=== PATIENT | female | born 1960 | race African-American/Black ===

== ENCOUNTER 2020-08-01 10:39 | Emergency (ER) | payer MEDICAID ==
[~2020-08-01] VITALS: Ht 165.1 cm; Wt 61.0 kg
[2020-08-01 10:42] VITALS: BP 140/66
[2020-08-01] MEDS ORDERED: KETOROLAC 60MG/2ML VIAL IM ONE (11:15)
[2020-08-01] MEDS ORDERED: ONDANSETRON HCL 4MG/2ML INJ IV STA (11:47)
[2020-08-01] MEDS ORDERED: MORPHINE SULFATE 4 MG/ML CPJ (NOT FOR IM USE) IV STA (11:47)
[2020-08-01] MEDS ORDERED: SODIUM CHLORIDE 0.9% 1,000 ML IV ONE (12:00)
[2020-08-01 13:21] LABS: BASOPHILS % 0.3 % (0.0-2.0); HEMATOCRIT. 45.6 % (36.0-48.0); HEMOGLOBIN. 15.2 g/dL (12.0-16.0); LYMPHOCYTES % 14.7 % (20.0-50.0); MEAN CORPUSCULAR HEMOGLOBIN 28.5 pg (28.0-32.0); MEAN CORPUSCULAR VOLUME 85.7 fL (81.0-99.0); MEAN PLATELET VOLUME 8.9 fl (7.4-10.4); PLATELET 227 x1000/uL (130-400); RED BLOOD CELL COUNT 5.33 mill/uL (4.2-5.4)
[2020-08-01 13:26] LABS: PROTHROMBIN TIME 10.2 sec (9.6-11.0)
[2020-08-01 13:28] LABS: CHLORIDE 106 mEq/L (98-107)
[2020-08-01 13:36] LABS: ETHANOL BLOOD < 10 mg/dL
[2020-08-01] MEDS ORDERED: IOHEXOL-300 100 ML BOTTLE ONE (14:51)
[2020-08-01 16:44] LABS: CLARITY URINE CLEAR (CLEAR); COLOR URINE YELLOW (YELLOW); KETONES URINE TRACE (NEGATIVE); LEUKOCYTE ESTERASE URINE TRACE (NEGATIVE); NITRITE URINE NEGATIVE (NEGATIVE); OCCULT BLOOD URINE TRACE (NEGATIVE); PROTEIN URINE NEGATIVE (NEGATIVE); SPECIFIC GRAVITY URINE 1.052 (1.005-1.030); UROBILINOGEN URINE 0.2 E.U./dL (0.2-1.0)
[2020-08-01 17:09] LABS: *AMPHETAMINES SCREEN URINE NEGATIVE (NEGATIVE); *BARBITURATES SCREEN URINE NEGATIVE (NEGATIVE); *BENZODIAZEPINES SCREEN URINE NEGATIVE (NEGATIVE); *COCAINE SCREEN URINE PRESUMTIVE POSITIVE (NEGATIVE); METHADONE URINE SCREEN NEGATIVE (NEGATIVE); OPIATES URINE SCREEN PRESUMTIVE POSITIVE (NEGATIVE)
[2020-08-01 17:10] LABS: CANNABINOID URINE SCREEN NEGATIVE (NEGATIVE); PHENCYCLIDINE URINE SCREEN NEGATIVE (NEGATIVE)
== END 2020-08-01 17:15 | disposition home or self-care (01) ==
LOC: ER 10:52
DX: R07.81 Pleurodynia (principal); R05 Cough; K76.89 Other specified diseases of liver
CPT/HCPCS: 36415; 71101; 71260; 74177; 80053; 80305; 80320; 81003; 83690; 85025; 85610; 87077; 87086; 87186; 93005; 96361; 96374; 96375; 99285; J2270; J2405; J7030; Q9967; Z7610; G0480

== ENCOUNTER 2022-06-10 00:55 | Inpatient (IN) | payer MEDICAID ==
[2022-06-09 20:00] VITALS: BP 149/81
[~2022-06-10] VITALS: Ht 154.9 cm; Wt 57.6 kg
[2022-06-10] MEDS ORDERED: ACETAMINOPHEN 500MG TABLET PO ONE (02:15)
[2022-06-10] MEDS ORDERED: IBUPROFEN 600MG TABLET PO ONE (04:15)
[2022-06-10 05:26] LABS: CHLORIDE 103 mEq/L (98-107)
[2022-06-10 05:27] LABS: BASOPHILS % 0.5 % (0.0-2.0); HEMATOCRIT. 43.3 % (36.0-48.0); HEMOGLOBIN. 14.4 g/dL (12.0-16.0); MEAN CORPUSCULAR HEMOGLOBIN 27.7 pg (28.0-32.0); MEAN CORPUSCULAR VOLUME 83.3 fL (81.0-99.0); MEAN PLATELET VOLUME 8.5 fl (7.4-10.4); MONOCYTES % 9.5 % (2.0-8.0); PLATELET 222 x1000/uL (130-400); RED BLOOD CELL COUNT 5.19 mill/uL (4.2-5.4)
[2022-06-10 12:00] VITALS: BP 155/91
[2022-06-10] MEDS ORDERED: ONDANSETRON HCL 4MG/2ML INJ IV PRN (12:30)
[2022-06-10] MEDS ORDERED: NALOXONE HCL 0.4MG/ML VIAL IV PRN (12:45)
[2022-06-10 16:00] VITALS: BP 131/83
[2022-06-10] MEDS: AMLODIPINE 10MG TABLET PO SCH (17:20)
[2022-06-10 18:27] LABS: PROTHROMBIN TIME 10.7 sec (9.6-11.0)
[2022-06-10 20:00] VITALS: BP 133/93
[2022-06-10 20:02] VITALS: BP 166/79
[2022-06-11 00:38] VITALS: BP 136/79
[2022-06-11 05:17] VITALS: BP 134/69
[2022-06-11 08:00] VITALS: BP 120/68
[2022-06-11] MEDS ORDERED: LIDOCAINE HCL 1% 30ML VIAL (10MG/ML) ONE (08:56)
[2022-06-11] MEDS ORDERED: SODIUM BICARBONATE 4% (2.4MEQ) 5ML VIAL IV ONE (08:57)
[2022-06-11] MEDS ORDERED: LIDOCAINE HCL/PF 1% 10 MG/ML 5ML VIAL ONE (08:57)
[2022-06-11 09:43] LABS: CLARITY URINE CLOUDY (CLEAR); COLOR URINE YELLOW (YELLOW); KETONES URINE NEGATIVE (NEGATIVE); LEUKOCYTE ESTERASE URINE 2+ (NEGATIVE); NITRITE URINE POSITIVE (NEGATIVE); OCCULT BLOOD URINE 1+ (NEGATIVE); PH URINE 6.5 (4.5-8.0); PROTEIN URINE NEGATIVE (NEGATIVE); SPECIFIC GRAVITY URINE 1.019 (1.005-1.030)
[2022-06-11 09:49] LABS: *AMPHETAMINES SCREEN URINE NEGATIVE (NEGATIVE); *BARBITURATES SCREEN URINE NEGATIVE (NEGATIVE); *BENZODIAZEPINES SCREEN URINE NEGATIVE (NEGATIVE); *COCAINE SCREEN URINE PRESUMTIVE POSITIVE (NEGATIVE); CANNABINOID URINE SCREEN NEGATIVE (NEGATIVE); METHADONE URINE SCREEN NEGATIVE (NEGATIVE); OPIATES URINE SCREEN NEGATIVE (NEGATIVE); PHENCYCLIDINE URINE SCREEN NEGATIVE (NEGATIVE)
[2022-06-11] MEDS: AMLODIPINE 10MG TABLET PO SCH (11:25)
[2022-06-11] MEDS: HYDROCODONE/ACETAMINOPHEN 10/325MG TABLET PO PRN ×2 (11:25→18:26)
[2022-06-11 12:00] VITALS: BP 111/64
[2022-06-11] MEDS ORDERED: CEFTRIAXONE 1 G PREMIX 50 ML IV SCH (13:00)
[2022-06-11 16:00] VITALS: BP 110/65
[2022-06-11 17:30] LABS: BASOPHILS % 0.2 % (0.0-2.0); EOSINOPHILS % 0.1 % (0.0-5.0); HEMATOCRIT. 45.6 % (36.0-48.0); LYMPHOCYTES % 20.3 % (20.0-50.0); MEAN CORPUSCULAR VOLUME 84.8 fL (81.0-99.0); MEAN PLATELET VOLUME 8.5 fl (7.4-10.4); MONOCYTES % 10.1 % (2.0-8.0); NEUTROPHILS % 69.3 % (40.0-76.0); PLATELET 254 x1000/uL (130-400); RED BLOOD CELL COUNT 5.38 mill/uL (4.2-5.4)
[2022-06-11 17:45] LABS: CHLORIDE 101 mEq/L (98-107)
[2022-06-11] MEDS: CEFTRIAXONE 1,000 MG in DEXTROSE 5% WATER 50 ML IV SCH (18:26)
[2022-06-11 19:55] VITALS: BP 109/61
[2022-06-12 00:14] VITALS: BP 104/56
[2022-06-12] MEDS: HYDROCODONE/ACETAMINOPHEN 10/325MG TABLET PO PRN ×4 (03:27→20:39)
[2022-06-12] MEDS: AMLODIPINE 10MG TABLET PO SCH (09:16)
[2022-06-12] MEDS: CEFTRIAXONE 1,000 MG in DEXTROSE 5% WATER 50 ML IV SCH (14:05)
[2022-06-12 20:00] VITALS: BP 110/65
[2022-06-13] VITALS: BP 111/66
[2022-06-13 04:00] VITALS: BP 111/66
[2022-06-13 08:00] VITALS: BP 104/51
[2022-06-13] MEDS: AMLODIPINE 10MG TABLET PO SCH (09:00)
[2022-06-13] MEDS: HYDROCODONE/ACETAMINOPHEN 10/325MG TABLET PO PRN ×3 (09:03→22:27)
[2022-06-13 12:00] VITALS: BP 112/64
[2022-06-13] MEDS: CEFTRIAXONE 1,000 MG in DEXTROSE 5% WATER 50 ML IV SCH (13:12)
[2022-06-13 20:00] VITALS: BP 140/63
[2022-06-14 05:00] VITALS: BP 120/67
[2022-06-14] MEDS: HYDROCODONE/ACETAMINOPHEN 10/325MG TABLET PO PRN ×3 (06:51→19:57)
[2022-06-14 08:00] VITALS: BP 113/56
[2022-06-14] MEDS: AMLODIPINE 10MG TABLET PO SCH (09:00)
[2022-06-14 12:00] VITALS: BP 104/51
[2022-06-14 16:00] VITALS: BP 104/57
[2022-06-14] MEDS: CEFTRIAXONE 1,000 MG in DEXTROSE 5% WATER 50 ML IV SCH (16:46)
[2022-06-14 20:00] VITALS: BP 109/64
[2022-06-15] VITALS: BP 103/68
[2022-06-15] MEDS: HYDROCODONE/ACETAMINOPHEN 10/325MG TABLET PO PRN ×2 (01:53→08:51)
[2022-06-15 04:00] VITALS: BP 107/62
[2022-06-15 08:00] VITALS: BP_SYST 107; BP_SYST 143; BP_DIAS 59; BP_DIAS 99
[2022-06-15] MEDS: AMLODIPINE 10MG TABLET PO SCH (09:00)
[2022-06-15] MEDS: CEFTRIAXONE 1,000 MG in DEXTROSE 5% WATER 50 ML IV SCH (14:56)
[2022-06-15] MEDS: KETOROLAC 15MG/ML VIAL IV PRN ×2 (14:56→22:12)
[2022-06-15] MEDS ORDERED: NALOXONE HCL 0.4MG/ML VIAL IV PRN (16:15)
[2022-06-15] MEDS ORDERED: HYDROCODONE/ACETAMINOPHEN 5/325MG TABLET PO PRN (16:15)
[2022-06-15 20:00] VITALS: BP 113/70
[2022-06-16] VITALS: BP 118/69
[2022-06-16 04:00] VITALS: BP 139/62
[2022-06-16 08:00] VITALS: BP 114/51
[2022-06-16] MEDS: AMLODIPINE 10MG TABLET PO SCH (09:38)
[2022-06-16] MEDS: KETOROLAC 15MG/ML VIAL IV PRN (09:38)
[2022-06-16 12:00] VITALS: BP 97/48
[2022-06-16] MEDS: CEFTRIAXONE 1,000 MG in DEXTROSE 5% WATER 50 ML IV SCH (13:24)
[2022-06-16 16:00] VITALS: BP 126/64
[2022-06-16 20:00] VITALS: BP 120/65
[2022-06-17] VITALS: BP 119/65
[2022-06-17 04:00] VITALS: BP 123/67
[2022-06-17 08:00] VITALS: BP 133/60
[2022-06-17] MEDS: AMLODIPINE 10MG TABLET PO SCH (08:56)
[2022-06-17 12:00] VITALS: BP 113/72
[2022-06-17 12:09] VITALS: BP 113/72
== END 2022-06-17 12:25 | disposition home or self-care (01) | DRG 351 ==
LOC: ER 01:46 → 6EST 05:49 → EDBEDREQTM 05:53 → EDBEDREQ 05:53 → ENRESERV 08:02
PROVIDERS: ADMIT Internal Medicine; ATTEND Internal Medicine
PROC: 0S9B3ZZ Drainage of Left Hip Joint, Percutaneous Approach (ICD-10-PCS; principal; 2022-06-11)
DX: M25.452 Effusion, left hip (principal); E44.1 Mild protein-calorie malnutrition; F14.90 Cocaine use, unspecified, uncomplicated; M17.12 Unilateral primary osteoarthritis, left knee; N39.0 Urinary tract infection, site not specified; Z20.822 Contact with and (suspected) exposure to COVID-19; I10 Essential (primary) hypertension; Z68.24 Body mass index [BMI] 24.0-24.9, adult
CPT/HCPCS: 20611; 36415; 72192; 73522; 73560; 73721; 80048; 80053; 80305; 81003; 85025; 87075; 87077; 87186; 87426; 93970; 97116; 97162; 97165; 97530; 99285; J0696; J1885; J3490; J7060